=== PATIENT | male | born 1950 | race Caucasian/White ===

== ENCOUNTER 2023-06-25 09:27 | Outpatient (OUT) | payer MEDICARE, SELFPAY ==
--- NOTE | 2023-06-25 09:30 | CT_ITS ---
[address] [address] Patient Name: LA NENA BONNER MRN: [id number] date: 1950 Sex: M Assigned Patient Location: CT Current Patient Location: CT Accession/Order Number: [id number] Exam Date: 06/25/2023 09:34 Report Date: 06/25/2023 12:55 At the request of: RONAK CALERO Procedure: CT lung screening low-dose EXAM: CT lung screening low-dose HISTORY: Current Every Day Smoker F17.200 COMPARISON: CT lung screen 05/29/2022. TECHNIQUE: Routine low-dose CT lung screen without intravenous contrast. FINDINGS: Cardiovascular: Stable dense atheromatous calcification left anterior descending and right coronary arteries. Stable mild atheromatous calcification along the aortic arch and at the origin of the great vessels off the aortic arch. Lung: There are no significant emphysematous changes. Nodules: Stable 0.2 cm noncalcified juxtapleural right lower lobe nodule (series 3 image 123). Stable 0.2 cm noncalcified juxtapleural left upper lobe nodule (series 3 image 39). There is a calcified granuloma within the lingula. Stable 0.2 cm noncalcified left lower lobe nodule (series 3 image 95). Lymphadenopathy: There are no pathologically enlarged axillary, mediastinal or hilar lymph nodes. Other: The trachea and esophagus are unremarkable. There is a slightly larger 1.2 cm hypodense nodule within the right lobe of the thyroid gland. Stable mild bilateral gynecomastia. Musculoskeletal: Unremarkable. CT/CT lung screening low-dose IMPRESSION: There are 3 stable 0.2 cm noncalcified nodules within the chest. There are no pathologically enlarged lymph nodes. Stable dense atheromatous calcification left anterior descending and right coronary arteries. Slightly larger 1.2 cm hypodense nodule within the right lobe of the thyroid gland. A thyroid ultrasound examination is recommended. Lung rads score 2 S. A low-dose CT lung screen examination in 12 months is recommended. Electronically authenticated by: VEGA JOHNSON Date: 06/25/2023 12:55
== END 2023-06-25 09:28 | disposition home or self-care (01) ==
LOC: CT 09:27
PROVIDERS: PCP Physician Assistant; Visit Provider Physician Assistant
DX: F17.210 Nicotine dependence, cigarettes, uncomplicated (principal); R91.8 Other nonspecific abnormal finding of lung field
CPT/HCPCS: 71271

== ENCOUNTER 2023-06-27 13:17 | Outpatient (OUT) | payer MEDICARE, SELFPAY ==
--- NOTE | 2023-06-27 13:22 | US_ITS ---
[address] [address] Patient Name: LA NENA BONNER MRN: [id number] date: 1950 Sex: M Assigned Patient Location: US Current Patient Location: Accession/Order Number: [id number] Exam Date: 06/27/2023 13:28 Report Date: 06/30/2023 07:21 At the request of: RONAK CALERO Procedure: US thyroid EXAMINATION: US thyroid HISTORY: Thyroid Nodule E04.1 COMPARISON: No relevant comparison available. TECHNIQUE: Sonographic images of the thyroid gland were obtained. FINDINGS: The right thyroid lobe measures 4.4 x 1.7 x 1.9 cm. 2 focal nodules. The thyroid isthmus measures 2.2 mm, normal. No focal nodule. Left thyroid lobe measures 4.3 x 1.6 x 1.9 cm. 2 focal nodules under 5 mm The most suspicious nodule: Right thyroid lobe. 1.2 x 0.9 x 1.2 cm. Mixed solid and cystic, hypoechoic, wide, smooth margins, no calcifications. TR 3 US/US thyroid IMPRESSION: 1.2 cm right thyroid TR 3 nodule TI-RADS: [employer] [place] TI-RADS committee's white paper recommendations for thyroid lesions classified as TR3 (mildly suspicious) are listed below: > 1.5 cm. Follow-up ultrasound in 1, 3, and 5 years. > 2.5 cm. FNA. J. Am Sissy Radiol 2017;14:587-595. Electronically authenticated by: HECTOR BARCENAS Date: 06/30/2023 07:21
== END 2023-06-27 13:18 | disposition home or self-care (01) ==
LOC: US 13:17
PROVIDERS: PCP Physician Assistant; Visit Provider Physician Assistant
DX: E04.1 Nontoxic single thyroid nodule (principal)
CPT/HCPCS: 76536

== ENCOUNTER 2024-06-30 10:05 | Outpatient (OUT) | payer MEDICARE, SELFPAY ==
--- NOTE | 2024-06-30 10:08 | CT_ITS ---
The [address] [address] Patient Name: LA NENA BONNER MRN: [id number] date: 1950 Sex: M Assigned Patient Location: CT Current Patient Location: CT Accession/Order Number: [id number] Exam Date: 06/30/2024 10:29 Report Date: 06/30/2024 10:41 At the request of: JUSTICE CAZARES Procedure: CT lung screening low-dose LOW-DOSE SCREENING CHEST CT WITHOUT CONTRAST COMPARISON: 06/25/2023 CLINICAL DATA: Current smoker referred follow-up nodules. Spiral axial unenhanced low-dose images were obtained through the lungs. Sagittal, coronal and 3-D volume rendered reconstructions were reviewed. This CT exam was performed using one or more following dose reduction techniques: Automated exposure control, adjustment of the mA and/or kV according to patient size, or use of iterative reconstruction technique. The heart is within normal limits for size. No pericardial effusion is present. Coronary artery disease is seen. The ascending aorta is mildly ectatic. Minor plaque at the arch. No enlarged lymph nodes are visualized. There are calcified left hilar granulomas. There is minor gynecomastia. A hypodense nodule is still seen at the inferior right thyroid lobe. There is subtle levoscoliotic curvature and tiny endplate spurs. There is minimal apical scarring. There is minor basilar dependent atelectasis. No consolidation, effusion or pneumothorax is seen. There is a calcified lingular granuloma. Two punctate nodules within the left lung on images 31 and 93 are again seen. They are not definitely calcified though are unchanged. No nodular areas are currently seen on the right. Limited imaging through the upper abdomen show splenic granulomatous change. CT/CT lung screening low-dose IMPRESSION: GRANULOMATOUS CHANGES. MINOR ATELECTASIS AND SCARRING. TINY STABLE LEFT PULMONARY NODULES. Lung RADS category 2 - benign Twelve-month low-dose CT follow-up suggested Impression dictated by: Alida Jennings M.D.06/30/2024 10:41 AM Dictation Location: [place] [address] Electronically authenticated by: [id number] Date: 06/30/2024 10:41
== END 2024-06-30 10:06 | disposition home or self-care (01) ==
LOC: CT 10:06
PROVIDERS: PCP Physician Assistant; Visit Provider Internal Medicine
DX: R91.8 Other nonspecific abnormal finding of lung field (principal); F17.210 Nicotine dependence, cigarettes, uncomplicated
CPT/HCPCS: 71271